=== PATIENT | male | born 1930 | race Caucasian/White ===

== ENCOUNTER 2017-11-21 17:22 | Inpatient (IN) | payer OTHER ==
[~2017-11-21] VITALS: Ht 167.6 cm; Wt 75.7 kg
[2017-11-21 17:28] VITALS: BP_SYST 134
[2017-11-21 18:03] LABS: BILIRUBIN,URINE NEGATIVE (NEGATIVE); BLOOD, URINE NEGATIVE (NEGATIVE); CLARITY/URINE CLEAR (CLEAR); COLOR,URINE YELLOW (YELLOW); GLUCOSE,URINE NEGATIVE (NEGATIVE); KETONES,URINE NEGATIVE (NEGATIVE); LEUKOCYTE ESTERASE ,URINE NEGATIVE (NEGATIVE); NITRITE, URINE NEGATIVE (NEGATIVE); PROTEIN URINE NEGATIVE (NEGATIVE); UROBILINOGEN,URINE 0.2 (0.2-1.0)
[2017-11-21 18:22] LABS: BARBITURATE, URINE NEGATIVE (NEG <=200); BENZODIAZEPINE, URINE NEGATIVE (NEG <=150); CANNABINOID, URINE NEGATIVE (NEG <=50); COCAINE, URINE NEGATIVE (NEG <=150); METHAMPHETAMINES SCREEN,URINE NEGATIVE (NEG <=500); OPIATE, URINE NEGATIVE (NEG <=100); PHENCYCLIDINE SCREEN,URINE NEGATIVE (NEG <=25); UR TRICYCLIC ANTIDEPRESSANTS NEGATIVE (NEG <=300); URINE AMPHETAMINE NEGATIVE (NEG <=500); URINE METHADONE NEGATIVE (NEG <=200); URINE OXYCODONE SCREEN NEGATIVE (NEG <=100); URINE PROPOXYPHENE SCREEN NEGATIVE (NEG <=300)
[2017-11-21 18:32] LABS: ANION GAP 7 (5-15); CALCIUM 9.7 mg/dL (8.4-11.0); CHLORIDE 105 mmol/L (98-107); CREATININE 1.06 mg/dL (0.55-1.30); GLUCOSE 101 mg/dL (70-99); POTASSIUM 4.2 mmol/L (3.5-5.1); SODIUM SERUM 140 mmol/L (136-145); UREA NITROGEN, BLOOD 15 mg/dL (8-21)
[2017-11-21 18:37] LABS: INR 1.1 (0.80-1.20); PROTHROMBIN TIME 10.7 SECS (9.5-12.5)
[2017-11-21 18:43] LABS: ALANINE AMINOTRANSFERASE 13 U/L (12-78); ALBUMIN 3.6 g/dL (3.4-4.8); ASPARTATE AMINOTRANSFERASE 20 U/L (10-37); TOTAL BILIRUBIN 0.4 mg/dL (0.0-1.0)
[2017-11-21 18:49] LABS: ALCOHOL, BLOOD < 3 mg/dL (<10); WHITE BLOOD COUNT (AUTO) 7.8 K/uL (4.8-10.8)
[2017-11-21 18:50] LABS: BASOPHILS % (AUTO) 0.7 % (0.0-2.0); EOSINOPHILS % (AUTO) 6.2 % (0.0-4.0); HEMATOCRIT 47.5 % (36-54); HEMOGLOBIN 16.2 g/dL (14.0-18.0); LYMPHOCYTES % (AUTO) 21.7 % (20.5-51.5); MEAN CORPUSCULAR HEMOGLOBIN 32 pg (27-31); MEAN CORPUSCULAR HGB CONC 34 % (32-36); MEAN CORPUSCULAR VOLUME 93 fL (79.0-98.0); MONOCYTES % (AUTO) 7.4 % (1.7-9.3); NEUTROPHILS # (AUTO) 4.9 K/uL (1.8-7.7); PLATELET COUNT (AUTO) 186 K/uL (130-430); RED BLOOD CELL COUNT(AUTO) 5.11 MIL/uL (4.2-6.2); RED CELL DISTRIBUTION WIDTH 12.4 % (9.0-15.0)
[2017-11-21 18:51] LABS: BASOPHILS # (AUTO) 0.1 K/uL (0.0-0.2); EOSINOPHILS # (AUTO) 0.5 K/uL (0.0-0.4); LYMPHOCYTES # (AUTO) 1.7 K/uL (1.0-5.5); MONOCYTES # (AUTO) 0.6 K/uL (0.0-1.0)
[2017-11-21 19:03] LABS: FREE T4 (FREE THYROXINE) 0.9 ng/dl (0.8-1.5)
[2017-11-21] MEDS ORDERED: ALBU2.5V7 INH (19:53)
[2017-11-21] MEDS ORDERED: ASPI-1155 PO (19:53)
[2017-11-21] MEDS ORDERED: SPIRIVA INH (19:53)
[2017-11-21] MEDS ORDERED: ASPI-858 PO (19:53)
[2017-11-21] MEDS ORDERED: POTASSIUM CHLORIDE 20 MEQ/PKT PACKET PO ONE (21:15)
[2017-11-21] MEDS ORDERED: KCL 10 mEq in 50 mL (PREMIX) 50 ML IV ONE (21:15)
[2017-11-21 22:18] VITALS: BP_SYST 129
[2017-11-21] MEDS ORDERED: IPRATROPIUM/ALBUTEROL SULFATE 3 ML AMPUL.NEB INH PRN (22:30)
[2017-11-21 22:34] VITALS: BP_SYST 137
[2017-11-22 00:36] VITALS: BP_SYST 128
[2017-11-22 07:03] LABS: BASOPHILS # (AUTO) 0.1 K/uL (0.0-0.2); BASOPHILS % (AUTO) 0.9 % (0.0-2.0); EOSINOPHILS # (AUTO) 0.5 K/uL (0.0-0.4); EOSINOPHILS % (AUTO) 7.3 % (0.0-4.0); HEMATOCRIT 48.3 % (36-54); HEMOGLOBIN 16.6 g/dL (14.0-18.0); LYMPHOCYTES # (AUTO) 1.4 K/uL (1.0-5.5); LYMPHOCYTES % (AUTO) 19.9 % (20.5-51.5); MEAN CORPUSCULAR HEMOGLOBIN 32 pg (27-31); MEAN CORPUSCULAR HGB CONC 34 % (32-36); MEAN CORPUSCULAR VOLUME 93 fL (79.0-98.0); MONOCYTES # (AUTO) 0.6 K/uL (0.0-1.0); NEUTROPHILS # (AUTO) 4.3 K/uL (1.8-7.7); NEUTROPHILS % (AUTO) 63.9 % (40.0-70.0); PLATELET COUNT (AUTO) 181 K/uL (130-430); RED CELL DISTRIBUTION WIDTH 12.5 % (9.0-15.0); WHITE BLOOD COUNT (AUTO) 6.9 K/uL (4.8-10.8)
[2017-11-22 07:24] LABS: ALANINE AMINOTRANSFERASE 20 U/L (12-78); ALBUMIN 3.2 g/dL (3.4-4.8); ANION GAP 8 (5-15); ASPARTATE AMINOTRANSFERASE 18 U/L (10-37); CALCIUM 9.3 mg/dL (8.4-11.0); CHLORIDE 107 mmol/L (98-107); CHOLESTEROL 176 mg/dL (<200); CREATININE 0.93 mg/dL (0.55-1.30); FREE T4 (FREE THYROXINE) 0.5 ng/dL (0.6-1.6); GLUCOSE 101 mg/dL (70-99); HDL CHOLESTEROL 32 mg/dL (>45); LDL CHOLESTEROL 137 mg/dL (<100); PHOSPHORUS 3.3 mg/dL (2.7-4.5); SODIUM SERUM 142 mmol/L (136-145); THYROID STIMULATING HORMONE 1.07 uIu/mL (0.34-4.82); TOTAL BILIRUBIN 0.7 mg/dL (0.0-1.0); TRIGLYCERIDES 112 mg/dL (30-150); UREA NITROGEN, BLOOD 12 mg/dL (8-21)
[2017-11-22] MEDS: ASPIRIN 81 MG TAB.CHEW PO SCH (08:11)
[2017-11-22] MEDS: DOCUSATE SODIUM 100 MG CAPSULE PO SCH ×2 (08:11→21:20)
[2017-11-22 08:18] VITALS: BP_SYST 126
[2017-11-22] MEDS ORDERED: BUDESONIDE 0.5 MG/2 ML AMPUL.NEB INH SCH (09:00)
[2017-11-22 12:00] VITALS: BP_SYST 128
[2017-11-22 16:00] VITALS: BP_SYST 126
[2017-11-22] MEDS ORDERED: DEXAMETHASONE SOD PHOSPHATE 4 MG/ML VIAL IVP ONE (16:15)
[2017-11-22] MEDS ORDERED: MECLIZINE HCL 25 MG TABLET (ANITVERT) PO PRN (17:00)
[2017-11-22] MEDS ORDERED: ZOLPIDEM TARTRATE 5 MG TABLET PO PRN (17:00)
[2017-11-22] MEDS ORDERED: ACETAMINOPHEN 325 MG TABLET PO PRN (17:00)
[2017-11-22] MEDS ORDERED: MAGNESIUM SULFATE 50 ML IV PRN (17:00)
[2017-11-22] MEDS ORDERED: MUPIROCIN 2% TOPICAL OINTMENT 22 GM NS PRN (17:00)
[2017-11-22] MEDS ORDERED: POTASSIUM CHLORIDE 20 MEQ TAB.PRT.SR PO PRN (17:00)
[2017-11-22] MEDS ORDERED: DEXTROSE 50% JECT 50 ML DISP.SYRIN IVP PRN (17:00)
[2017-11-22] MEDS ORDERED: ONDANSETRON HCL 4 MG/2 ML VIAL IVP PRN (17:00)
[2017-11-22] MEDS ORDERED: DOCUSATE SODIUM 100 MG CAPSULE PO PRN (17:00)
[2017-11-22] MEDS ORDERED: MORPHINE 2 MG/ML INJ. SYRINGE IVP PRN (17:00)
[2017-11-22] MEDS: IPRATROPIUM/ALBUTEROL SULFATE 3 ML AMPUL.NEB INH PRN (19:29)
[2017-11-22 19:30] VITALS: BP_SYST 130
[2017-11-22] MEDS: BUDESONIDE 0.5 MG/2 ML AMPUL.NEB INH SCH (19:46)
[2017-11-22] MEDS: POLYETHYLENE GLYCOL 3350, 17 GM/ POWD.PACK PO PRN (21:20)
[2017-11-22] MEDS: OLANZapine 2.5 MG TABLET PO SCH (21:20)
[2017-11-22] MEDS: INSULIN ASPART 100 UNITS/ML, 10 ML VIAL (NovoLOG) SUBCUT PRN (21:20)
[2017-11-23 00:19] VITALS: BP_SYST 123
[2017-11-23 07:35] LABS: BASOPHILS % (AUTO) 0.1 % (0.0-2.0); EOSINOPHILS % (AUTO) 0.1 % (0.0-4.0); HEMATOCRIT 49.2 % (36-54); LYMPHOCYTES # (AUTO) 0.9 K/uL (1.0-5.5); LYMPHOCYTES % (AUTO) 10.2 % (20.5-51.5); MEAN CORPUSCULAR HEMOGLOBIN 32 pg (27-31); MEAN CORPUSCULAR HGB CONC 35 % (32-36); MEAN CORPUSCULAR VOLUME 93 fL (79.0-98.0); MONOCYTES # (AUTO) 0.3 K/uL (0.0-1.0); MONOCYTES % (AUTO) 3.8 % (1.7-9.3); NEUTROPHILS # (AUTO) 7.7 K/uL (1.8-7.7); NEUTROPHILS % (AUTO) 85.8 % (40.0-70.0); PLATELET COUNT (AUTO) 191 K/uL (130-430); RED BLOOD CELL COUNT(AUTO) 5.31 MIL/uL (4.2-6.2); RED CELL DISTRIBUTION WIDTH 12.8 % (9.0-15.0); WHITE BLOOD COUNT (AUTO) 8.9 K/uL (4.8-10.8)
[2017-11-23 07:46] LABS: ANION GAP 8 (5-15); CALCIUM 9.6 mg/dL (8.4-11.0); CHLORIDE 106 mmol/L (98-107); GLUCOSE 125 mg/dL (70-99); PHOSPHORUS 3.7 mg/dL (2.7-4.5); POTASSIUM 4.4 mmol/L (3.5-5.1); SODIUM SERUM 140 mmol/L (136-145); UREA NITROGEN, BLOOD 17 mg/dL (8-21)
[2017-11-23 08:00] VITALS: BP_SYST 138
[2017-11-23] MEDS: BUDESONIDE 0.5 MG/2 ML AMPUL.NEB INH SCH ×2 (08:28→19:36)
[2017-11-23] MEDS: IPRATROPIUM/ALBUTEROL SULFATE 3 ML AMPUL.NEB INH PRN (08:29)
[2017-11-23] MEDS ORDERED: OLANZapine 2.5 MG TABLET PO SCH (09:00)
[2017-11-23] MEDS: ATORVASTATIN 20 MG TABLET PO SCH (10:30)
[2017-11-23] MEDS: ASPIRIN 81 MG TAB.CHEW PO SCH (10:31)
[2017-11-23] MEDS: DOCUSATE SODIUM 100 MG CAPSULE PO SCH ×2 (10:31→20:29)
[2017-11-23 12:00] VITALS: BP_SYST 134
[2017-11-23 16:01] VITALS: BP_SYST 134
[2017-11-23] MEDS: POLYETHYLENE GLYCOL 3350, 17 GM/ POWD.PACK PO PRN (18:22)
[2017-11-23 20:05] VITALS: BP_SYST 136
[2017-11-23] MEDS: INSULIN ASPART 100 UNITS/ML, 10 ML VIAL (NovoLOG) SUBCUT PRN (20:29)
[2017-11-23] MEDS: OLANZapine 2.5 MG TABLET PO SCH (20:29)
[2017-11-24] VITALS: BP_SYST 106
[2017-11-24 00:51] LABS: HEMOGLOBIN A1C 5.5 % (4.8-5.6)
[2017-11-24] MEDS: BUDESONIDE 0.5 MG/2 ML AMPUL.NEB INH SCH (07:07)
[2017-11-24 08:00] VITALS: BP_SYST 110
[2017-11-24 08:08] LABS: BASOPHILS % (AUTO) 0.6 % (0.0-2.0); EOSINOPHILS # (AUTO) 0.4 K/uL (0.0-0.4); EOSINOPHILS % (AUTO) 4.6 % (0.0-4.0); HEMATOCRIT 46.7 % (36-54); HEMOGLOBIN 15.4 g/dL (14.0-18.0); LYMPHOCYTES # (AUTO) 1.8 K/uL (1.0-5.5); MEAN CORPUSCULAR HEMOGLOBIN 30 pg (27-31); MEAN CORPUSCULAR HGB CONC 33 % (32-36); MEAN CORPUSCULAR VOLUME 92 fL (79.0-98.0); MONOCYTES # (AUTO) 0.6 K/uL (0.0-1.0); MONOCYTES % (AUTO) 7.9 % (1.7-9.3); NEUTROPHILS # (AUTO) 5.2 K/uL (1.8-7.7); NEUTROPHILS % (AUTO) 64.9 % (40.0-70.0); PLATELET COUNT (AUTO) 188 K/uL (130-430); RED BLOOD CELL COUNT(AUTO) 5.06 MIL/uL (4.2-6.2)
[2017-11-24 08:16] LABS: ANION GAP 6 (5-15); CALCIUM 9.5 mg/dL (8.4-11.0); CHLORIDE 107 mmol/L (98-107); CREATININE 0.98 mg/dL (0.55-1.30); GLUCOSE 99 mg/dL (70-99); POTASSIUM 3.7 mmol/L (3.5-5.1); SODIUM SERUM 140 mmol/L (136-145); UREA NITROGEN, BLOOD 18 mg/dL (8-21)
[2017-11-24] MEDS: ATORVASTATIN 20 MG TABLET PO SCH (08:46)
[2017-11-24] MEDS: DOCUSATE SODIUM 100 MG CAPSULE PO SCH (08:47)
[2017-11-24] MEDS: ASPIRIN 81 MG TAB.CHEW PO SCH (08:47)
[2017-11-24] MEDS ORDERED: BISACODYL 5 MG TABLET.DR (DULCOLAX) PO ONE (10:15)
[2017-11-24] MEDS ORDERED: NA PHOS,M-B/NA PHOS,DI-BA 118 ML (FLEET ENEMA) RC ONE (10:15)
[2017-11-24 12:32] VITALS: BP_SYST 120
[2017-11-24 13:17] VITALS: BP_SYST 108
[2017-11-24 16:04] VITALS: BP_SYST 149
== END 2017-11-24 16:30 | DRG 73 ==
LOC: SED 17:22 → STU 21:31 → SMU 11-23 15:52
PROVIDERS: ADMIT Family Medicine; ATTEND Family Medicine
DX: G90.8 Other disorders of autonomic nervous system (principal); G93.41 Metabolic encephalopathy; F05 Delirium due to known physiological condition; E11.43 Type 2 diabetes mellitus with diabetic autonomic (poly)neuropathy; E78.5 Hyperlipidemia, unspecified; F02.80 Dementia in other diseases classified elsewhere, unspecified severity, without behavioral disturbance, psychotic disturbance, mood disturbance, and anxiety; G30.9 Alzheimer's disease, unspecified; H53.461 Homonymous bilateral field defects, right side; J45.909 Unspecified asthma, uncomplicated; I10 Essential (primary) hypertension; R26.81 Unsteadiness on feet; I25.10 Atherosclerotic heart disease of native coronary artery without angina pectoris; J44.9 Chronic obstructive pulmonary disease, unspecified; Z86.73 Personal history of transient ischemic attack (TIA), and cerebral infarction without residual deficits; Z95.1 Presence of aortocoronary bypass graft; Z95.0 Presence of cardiac pacemaker; Z79.82 Long term (current) use of aspirin; Z79.51 Long term (current) use of inhaled steroids
CPT/HCPCS: 36415; 70450-TC; 71045; 74018; 80048; 80053; 80061; 80307; 81003; 82140-TC; 82962; 83036; 83605; 83735-TC; 83880; 84100-TC; 84439; 84443-TC; 84479; 84480; 84484; 85025; 85610-TC; 87040-TC; 87081; 87086; 93005; 93306; 93880; 94010; 94640; 94760; 97110-GP; 97116-GP; 97530-GP; 99285; G0482; J1100; J1815; J7620; J7626

== ENCOUNTER 2018-01-04 11:32 | Inpatient (IN) | payer OTHER ==
[~2018-01-04] VITALS: Ht 170.2 cm; Wt 74.8 kg
[~2018-01-04 11:32] MED LIST: ALBU2.5V7 INH; ASPI-1155 PO; ASPI-858 PO; SPIRIVA INH
[2018-01-04 11:34] VITALS: BP_SYST 126
--- NOTE | 2018-01-04 11:35 | NUR ---
Patient to ER bed 2 to gown for evaluation. Side rails up. Report given to Frank FINLEY.
--- NOTE | 2018-01-04 11:37 | NUR ---
Patient is awake, alert, and oriented x4. He states he has "heart problelms" and "they decided to bring me here. EMT reports he had sharp substernal chest pain 09/13. History of brain tumor, pacemaker, former smoker, hard of hearing.
--- NOTE | 2018-01-04 11:44 | NUR ---
ER at bedside examining patient.
--- NOTE | 2018-01-04 11:45 | NUR ---
ER at bedside examining patient.
[2018-01-04 12:25] LABS: BASOPHILS % (AUTO) 0.6 % (0.0-2.0); EOSINOPHILS # (AUTO) 0.3 K/uL (0.0-0.4); EOSINOPHILS % (AUTO) 4.5 % (0.0-4.0); HEMOGLOBIN 16.6 g/dL (14.0-18.0); LYMPHOCYTES # (AUTO) 1.1 K/uL (1.0-5.5); LYMPHOCYTES % (AUTO) 15.3 % (20.5-51.5); MEAN CORPUSCULAR HEMOGLOBIN 30 pg (27-31); MEAN CORPUSCULAR HGB CONC 33 % (32-36); MEAN CORPUSCULAR VOLUME 93 fL (79.0-98.0); MONOCYTES # (AUTO) 0.7 K/uL (0.0-1.0); MONOCYTES % (AUTO) 9.4 % (1.7-9.3); NEUTROPHILS % (AUTO) 70.2 % (40.0-70.0); PLATELET COUNT (AUTO) 224 K/uL (130-430); RED BLOOD CELL COUNT(AUTO) 5.48 MIL/uL (4.2-6.2); RED CELL DISTRIBUTION WIDTH 12.8 % (9.0-15.0); WHITE BLOOD COUNT (AUTO) 7.1 K/uL (4.8-10.8)
[2018-01-04 12:34] LABS: INR 1.2 (0.80-1.20); PROTHROMBIN TIME 11.9 SECS (9.5-12.5)
[2018-01-04 12:44] LABS: ANION GAP 4 (5-15); CHLORIDE 103 mmol/L (98-107); CREATININE 0.94 mg/dL (0.55-1.30); GLUCOSE 104 mg/dL (70-99); POTASSIUM 4.1 mmol/L (3.5-5.1); SODIUM SERUM 135 mmol/L (136-145); UREA NITROGEN, BLOOD 13 mg/dL (8-21)
[2018-01-04 12:49] LABS: ALANINE AMINOTRANSFERASE 20 U/L (12-78); ALBUMIN 3.6 g/dL (3.4-4.8); ASPARTATE AMINOTRANSFERASE 17 U/L (10-37); TOTAL BILIRUBIN 0.8 mg/dL (0.0-1.0)
[2018-01-04 12:52] LABS: CALCIUM 9.6 mg/dL (8.4-11.0)
--- NOTE | 2018-01-04 14:23 | NUR ---
Called [facility] for bed assignment. Patient to [facility] room 135. Yossi to admit.
--- NOTE | 2018-01-04 14:35 | NUR ---
ADMISSION NOTE Received patient from ER via edis, received report from HANNAH FINLEY. Patient admitted with diagnosis of CHEST PAIN. Patient oriented to hospital routine, call light, toileting and safety-patient verbalized understanding.
[2018-01-04 14:39] VITALS: BP_SYST 123
--- NOTE | 2018-01-04 14:40 | NUR ---
Patient transported via gurney to room 135, report given to Yossi for continuation of care.
[2018-01-04 16:00] VITALS: BP_SYST 128
[2018-01-04] MEDS ORDERED: ALBUTEROL SULFATE 0.083% 2.5 MG/3 ML VIAL.NEB INH ONE (16:15)
[2018-01-04] MEDS ORDERED: IPRATROPIUM BROM 0.5 MG/2.5 ML VIAL.NEB (ATROVENT) INH PRN (16:15)
[2018-01-04] MEDS ORDERED: ALBUTEROL SULFATE 0.083% 2.5 MG/3 ML VIAL.NEB INH PRN (16:15)
--- NOTE | 2018-01-04 16:29 | NUR ---
RECEIVED REPORT FROM GLENIS. WILL CONTINUE CARE OF PATIENT. PATIENT HELPED TO RESTROOM. PATIENT BACK IN BED. PATIENT DOESNT WANT GOWN. PATIENT HAS NO FURTHER REQUEST. CALL LIGHT IN REACH AND BED ALARM ON. WILL CONTINUE TO MONITOR.
[2018-01-04 16:40] VITALS: BP_SYST 123
--- NOTE | 2018-01-04 18:20 | NUR ---
CLOSING NOTE: PATIENT SITTING IN BED, JUST FINISHED EATING DINNER. PATIENT ON ROOM AIR NOT COMPLAINING OF SHORTNESS OF BREATH. PATIENT NOT COMPLAINING OF CHEST PAIN. PATIENT SALINE LOCKED. PATIENT WANTED BLANKET. POSITIONED PATIENT FOR COMFORT AND COVERED WITH WARM BLANKET. PATIENT HAS NO FURTHER REQUEST. WILL CONTINUE TO MONITOR AND GIVE REPORT TO NIGHT NURSE.
[2018-01-04] MEDS: IPRATROPIUM BROM 0.5 MG/2.5 ML VIAL.NEB (ATROVENT) INH SCH ×2 (19:00→23:00)
[2018-01-04] MEDS: ALBUTEROL SULFATE 0.083% 2.5 MG/3 ML VIAL.NEB INH SCH ×2 (19:00→23:00)
[2018-01-04 20:00] VITALS: BP_SYST 114
--- NOTE | 2018-01-04 20:00 | NUR ---
Initial PM Note Pt is awake and resting comfortably in bed. Pt denies chest pain. No acute distress noted at this time. Saline lock in LFA is without any signs of infiltration. Fall and safety precautions are in place. Pt was instructed to call for assistance as needed and pt verbalized understanding. Call light is with pt and bed alarm is on. Will continue to monitor pt.
--- NOTE | 2018-01-04 22:00 | NUR ---
rounds Pt is resting quietly in bed. Call light is with pt and bed alarm is on.
--- NOTE | 2018-01-05 | NUR ---
Rounds Pt is sleeping without any distress noted. Call light is with pt and bed alarm is on.
[2018-01-05 00:55] VITALS: BP_SYST 109
--- NOTE | 2018-01-05 02:00 | NUR ---
Rounds Pt is sleeping comfortably in bed. Call light is with pt and bed alarm is on.
[2018-01-05] MEDS: ALBUTEROL SULFATE 0.083% 2.5 MG/3 ML VIAL.NEB INH SCH ×6 (03:00→23:10)
[2018-01-05] MEDS: IPRATROPIUM BROM 0.5 MG/2.5 ML VIAL.NEB (ATROVENT) INH SCH ×6 (03:00→23:10)
--- NOTE | 2018-01-05 04:00 | NUR ---
Rounds Pt is sleeping without any distress noted. Call light is with pt and bed alarm is on.
--- NOTE | 2018-01-05 05:27 | NUR ---
Rounds Pt is sleeping without any distress noted. Call light is with pt and bed alarm is on.
--- NOTE | 2018-01-05 07:10 | NUR ---
Closing Note Pt is awake and resting comfortably in bed. All pt's needs were attended to. No fall or injury noted this shift. Saline lock is intact in LFA. Will endorse to day shift nurse.
[2018-01-05 08:01] VITALS: BP_SYST 116
--- NOTE | 2018-01-05 08:04 | NUR ---
INITIAL NOTE RECEIVED PT IN BED, NO S/S OF DISTRESS OR SOB NOTED, PT HAS NO C/O PAIN AT THIS TIME, PT IN STABLE CONDITION, PT AAOX4, VERBAL. IV CATHETER PATENT, NO SIGN OF INFECTION OR INFILTRATION NOTED, SALINE LOCK. PT HAS NO C/O CHEST PAIN. PT HAS BILATERAL SCD'S IN PLACE. BED AT LOWEST POSITION, CALL LIGHT WITHIN REACH, WILL CONTINUE TO MONITOR PT FOR ANY CHANGES, FALL AND SAFETY PRECAUTIONS IN PLACE.
[2018-01-05] MEDS: ASPIRIN 325 MG TABLET PO SCH (09:00)
--- NOTE | 2018-01-05 10:14 | NUR ---
Nutrition Update [place] Scale 17 noted. Pt admitted for chest pain. Diet: cardiac BMI: 210.2 kg/m2 RD to follow per nutrition care standards.
--- NOTE | 2018-01-05 10:18 | NUR ---
MD ROUNDS DR GRZEGORZ HAWK, AWARE OF PATIENT'S CONDITION.
--- NOTE | 2018-01-05 10:40 | NUR ---
Cardiac consult called: for Dr. Smith, regarding chest pain, ordered by Dr. Moore.
--- NOTE | 2018-01-05 10:45 | NUR ---
ROUNDS PT IN BED, NO S/S OF DISTRESS OR SOB NOTED, PT HAS NO C/O PAIN AT THIS TIME, PT IN STABLE CONDITION, PT WATCHING TV, WILL CONTINUE TO MONITOR PT FOR ANY CHANGES.
[2018-01-05 12:00] VITALS: BP_SYST 144
--- NOTE | 2018-01-05 14:25 | NUR ---
ROUNDS PT IN BED, NO S/S OF DISTRESS OR SOB NOTED, PT HAS NO C/O PAIN AT THIS TIME, PT IN STABLE CONDITION, PT RESTING COMFORTABLY, WILL CONTINUE TO MONITOR PT FOR ANY CHANGES.
[2018-01-05 16:00] VITALS: BP_SYST 128
--- NOTE | 2018-01-05 18:29 | NUR ---
CLOSING NOTE PT IN BED, NO S/S OF DISTRESS OR SOB NOTED, PT HAS NO C/O PAIN AT THIS TIME, PT IN STABLE CONDITION, PT AAOX4, VERBAL. IV CATHETER PATENT, NO SIGN OF INFECTION OR INFILTRATION NOTED, SALINE LOCK. PT HAS NO C/O CHEST PAIN. PT HAS BILATERAL SCD'S IN PLACE. BED AT LOWEST POSITION, CALL LIGHT WITHIN REACH, WILL ENDORSE CARE OF PT TO INCOMING NURSE, FALL AND SAFETY PRECAUTIONS IN PLACE.
--- NOTE | 2018-01-05 19:34 | NUR ---
Initial PM Note Pt is resting comfortably in bed and denies chest pain or pressure. No acute distress noted at this time. Saline lock in LFA is without any signs of infiltration. Fall and safety precautions are in place. Pt was instructed to call for assistance as needed and pt verbalized understanding. Call light is with pt and bed alarm is on. Will continue to monitor pt.
--- NOTE | 2018-01-05 20:45 | NUR ---
Transfer Pt was seen getting out of bed without calling for assistance, triggering bed alarm and pt is unsteady on his feet. Pt is forgetful at times. Per charge nurse's instruction, pt was transferred from Room 119B to 120B with all his belongings. No c/o pain or discomfort. Pt was oriented to his new room and surrounding. Call light is with pt and bed alarm is on. Pt was instructed to call for assistance as needed and pt verbalized understanding. Will continue to monitor pt.
--- NOTE | 2018-01-05 22:00 | NUR ---
Rounds Pt is sleeping comfortably in bed. Call light is with pt and bed alarm is on.
[2018-01-05 23:32] VITALS: BP_SYST 116
--- NOTE | 2018-01-06 | NUR ---
Rounds Pt is sleeping comfortably in bed without any distress noted. Call light is with pt and bed alarm is on.
--- NOTE | 2018-01-06 02:00 | NUR ---
Rounds Pt is sleeping comfortably in bed. Call light is with pt and bed alarm is on.
[2018-01-06] MEDS: ALBUTEROL SULFATE 0.083% 2.5 MG/3 ML VIAL.NEB INH SCH ×6 (03:00→23:00)
[2018-01-06] MEDS: IPRATROPIUM BROM 0.5 MG/2.5 ML VIAL.NEB (ATROVENT) INH SCH ×6 (03:00→23:00)
--- NOTE | 2018-01-06 04:00 | NUR ---
Rounds Pt is sleeping comfortably in bed without any distress noted. Call light is with pt and bed alarm is on.
[2018-01-06 07:57] VITALS: BP_SYST 122
--- NOTE | 2018-01-06 08:00 | NUR ---
Initial notes: Patient alert, awake and oriented. Stable. I.V, access patent. Safety measures in placed. Call light within reach. Report received at bedside.
[2018-01-06] MEDS: ASPIRIN 325 MG TABLET PO SCH (08:43)
--- NOTE | 2018-01-06 12:21 | NUR ---
rounds: patient able to walk with walker going to the toilet. no distress noted.
--- NOTE | 2018-01-06 13:00 | NUR ---
MRI: Patient cannot have an MRI per Radiology due to pace maker. Addendum: 01/06/18 at 1735 by Pam Nicole RN Informed Dr. Moore. No new order.
--- NOTE | 2018-01-06 15:03 | NUR ---
Dietitian Recommendations * Recommend continuing cardiac diet per MD * Recommend encourage increase PO intakes LP, RD Please refer to Nutrition Assessment for details.
[2018-01-06 16:15] VITALS: BP_SYST 135
--- NOTE | 2018-01-06 16:34 | NUR ---
rounds: patient resting. no distress noted.
--- NOTE | 2018-01-06 18:49 | NUR ---
Closing notes: Patient on bed resting. Stable. Needs attended. Safety measures in placed. Call light within reach. Report will be given to night supervisor.
[2018-01-06 19:00] VITALS: BP_SYST 110
--- NOTE | 2018-01-06 19:05 | NUR ---
change of shift.pt.presents quiescent affect;calm.pt,.presents [place];status;bilateral.pt.utilizing the assist-device; walker to transfer to then restroom.general status stable.respiratory status stable.call light/telephone placed w/in the pt's reach.
[2018-01-06 20:00] VITALS: BP_SYST 110
--- NOTE | 2018-01-06 20:05 | NUR ---
pt.assessed.v/s assessed:values w/in normal limits.no c/o pain,nausea.i have assisted the pt.to the restroom. i have assisted the pt.return to the bed safely.assist-device;walker utilized.general status stable.respiratory status stable.i have apprised the pt.that snacks are available w/in the shift.pt.presents no requests@ this hour.call light/telephone placed w/in the pt's reach.
--- NOTE | 2018-01-06 20:05 | NUR ---
pt.assessed.v/s assessed.no c/p pain,nausea.general status stable.respiratory status stable.i have assisted the pt. to the restroom.i have assisted the pt's return to bed safely;assist-device walker utilized.
--- NOTE | 2018-01-06 22:05 | NUR ---
pr.assessed.pt.presents quiescent affect;calm,somnolent.general status stable.respiratory status stable. pt.capable to reposition self.call light/telephone placed w/u the pt's reach.
--- NOTE | 2018-01-06 22:45 | NUR ---
i have assisted the pt.to the restroom.i have assisted the pt's return to bed safely.assist-device;walker utilized.pt.presents no c.o pain,nausea.pt.presents no requests@this hour.pt.capable to reposition self. call light/telephone placed w/in the pt's reach.
[2018-01-07] VITALS: BP_SYST 112
--- NOTE | 2018-01-07 00:15 | NUR ---
pt.assessed.v/s assessed;values w/ij normal limits.i have assisted the pt.to the restroom.i have assisted the pt's return to bed safely.no requests@this hour.pt.capable to reposition self.call light/telephone placed w/in the pt's reach.
--- NOTE | 2018-01-07 02:05 | NUR ---
pt.assessed.pt.presents quiescent affect;calm,somnolent.general status stable.respiratory status stable. pt.repositioned.call light/telephone placed w/in the pt's reach.
[2018-01-07] MEDS: IPRATROPIUM BROM 0.5 MG/2.5 ML VIAL.NEB (ATROVENT) INH SCH ×3 (03:00→12:06)
[2018-01-07] MEDS: ALBUTEROL SULFATE 0.083% 2.5 MG/3 ML VIAL.NEB INH SCH ×3 (03:00→12:06)
--- NOTE | 2018-01-07 04:05 | NUR ---
pt.assessed.pt.presents quiescent affect;calm,somnolent.general status sable.respiratory status stable.pt.repositioned.call light/telephone placed w/in the pt's reach.
--- NOTE | 2018-01-07 05:30 | NUR ---
i have assisted the pt.to the restroom.i have assisted the pt's return to bed safely w/assist-device;walker. no additional requests.pt.assisted w/ repositioning.call light/telephone placed w/in the pt's reach.
--- NOTE | 2018-01-07 06:00 | NUR ---
pt.assessed.pt.presents quiescent affect;calm,somnolent.general status stable.respiratory status stable. i have assisted the pt. to reposition.call light/telephone placed w/in the pt's reach.
--- NOTE | 2018-01-07 07:33 | NUR ---
Initial notes: Patient on bed sleeping. Stable. I.V. access patent. Safety measures in placed. Call light within reach. Report received at bedside.
[2018-01-07 07:55] VITALS: BP_SYST 109
[2018-01-07] MEDS: ASPIRIN 325 MG TABLET PO SCH (08:08)
--- NOTE | 2018-01-07 08:10 | NUR ---
ROUNDS: Patient on bed resting. morning med given and compliant.
--- NOTE | 2018-01-07 10:00 | NUR ---
ambulatory: Patient able to walk with a walker and assist going to the toilet. No distress noted.
[2018-01-07 10:16] VITALS: BP_SYST 113
--- NOTE | 2018-01-07 13:25 | NUR ---
D/C Patient Patient given medication reconciliation form and D/C instructions. Exit Care provided. Patient verbalized understanding. MD discussed with patient the results and treatment provided. Ambulatory with steady gait uses walker for discharge to home. Patient in stable condition, ID band removed. IV catheter removed, intact and dressing applied, no active bleeding. Patient educated on pain management. All belongings sent with patient.
== END 2018-01-07 13:25 | disposition home or self-care (01) | DRG 313 ==
LOC: SED 11:32 → STU 14:18
PROVIDERS: ADMIT Internal Medicine Hospice and Palliative Medicine; ATTEND Internal Medicine Hospice and Palliative Medicine
DX: R07.89 Other chest pain (principal); J44.9 Chronic obstructive pulmonary disease, unspecified; I48.2 Chronic atrial fibrillation; I25.10 Atherosclerotic heart disease of native coronary artery without angina pectoris; F03.90 Unspecified dementia, unspecified severity, without behavioral disturbance, psychotic disturbance, mood disturbance, and anxiety; Z87.891 Personal history of nicotine dependence; E11.9 Type 2 diabetes mellitus without complications; Z95.0 Presence of cardiac pacemaker; I11.0 Hypertensive heart disease with heart failure; I50.9 Heart failure, unspecified; Z95.1 Presence of aortocoronary bypass graft
CPT/HCPCS: 36415; 70450-TC; 71045; 80053; 82550-TC; 83880; 84484; 85025; 85610-TC; 85730-TC; 87081; 93005; 94640; 94760; 99285; J7613